=== PATIENT | male | born 1980 | race Caucasian/White ===

== ENCOUNTER 2021-03-20 09:35 | Emergency (ER) | payer BC ==
[~2021-03-20] VITALS: Ht 172.7 cm; Wt 90.9 kg
[2021-03-20 09:44] VITALS: BP 181/107
[2021-03-20] MEDS ORDERED: folic acid 1mg/0.2ml inj IV ONE (09:50)
[2021-03-20] MEDS ORDERED: thiamine 100mg/ml 2ml inj. IV ONE (09:50)
[2021-03-20] MEDS ORDERED: normal saline 1000ML IV soln IVB ONE (09:50)
[2021-03-20 10:14] LABS: BASOPHILS % (AUTO) 0.3 % (0-1); EOSINOPHILS % (AUTO) 0.2 % (0-6); HEMATOCRIT 42.5 % (42.0-52.0); HEMOGLOBIN 14.7 g/dl (14.0-17.9); LYMPHOCYTES # (AUTO) 1.6 X10'3 (1.1-4.8); LYMPHOCYTES % (AUTO) 32.7 % (21-51); MEAN CORPUSCULAR HGB CONC 34.6 g/dL (33.0-36.5); MEAN CORPUSCULAR VOLUME 95.4 FL (78-98); MEAN PLATELET VOLUME 7.5 FL (7.4-10.4); MONOCYTES # (AUTO) 0.5 X10'3 (0-0.9); MONOCYTES % (AUTO) 10.4 % (2-12); NEUTROPHILS # (AUTO) 2.7 X10'3 (1.8-7.7); NEUTROPHILS % (AUTO) 56.4 % (42-75); PLATELET COUNT 235 X10'3 (140-440); RED BLOOD COUNT 4.46 X10'6 (4.70-6.10); RED CELL DISTRIBUTION WIDTH 13.2 % (11.5-14.5); WHITE BLOOD COUNT 4.8 X10'3 (4.5-11.0)
[2021-03-20 10:38] LABS: ALANINE AMINOTRANSFERASE 52 U/L (12-78); ALBUMIN 4.5 G/DL (3.4-5.0); ALBUMIN/GLOBULIN RATIO 1.6 (1.1-1.5); ALKALINE PHOSPHATASE 46 IU/L (46-116); ANION GAP 11 (8-16); ASPARTATE AMINO TRANSFERASE 39 U/L (10-37); BILIRUBIN,TOTAL 1.5 MG/DL (0.1-1.0); BLOOD UREA NITROGEN 11 MG/DL (7-18); BUN/CREATININE RATIO 14.1 (5.4-32.0); CALCIUM 8.2 MG/DL (8.5-10.1); CHLORIDE 102 MMOL/L (99-107); CREATININE 0.78 MG/DL (0.60-1.10); ETHANOL < 0.010 GM/DL (0.0-0.010); GLUCOSE 100 MG/DL (70-104); POTASSIUM 3.9 MMOL/L (3.5-5.1); SODIUM 141 MMOL/L (135-145); TOTAL CARBON DIOXIDE 28.1 MMOL/L (24-32); TOTAL PROTEIN 7.4 G/DL (6.4-8.2); eGFR > 90 ML/MIN
[2021-03-20] MEDS ORDERED: ONDA4TAB6 PO (11:49)
[2021-03-20] MEDS ORDERED: LORA-269 PO (11:49)
[2021-03-20] MEDS ORDERED: GABA300C PO (11:49)
== END 2021-03-20 12:06 | disposition home or self-care (01) ==
LOC: ER 09:36
DX: F10.239 Alcohol dependence with withdrawal, unspecified (principal); Z79.899 Other long term (current) drug therapy; Y90.0 Blood alcohol level of less than 20 mg/100 ml
CPT/HCPCS: 36415; 80053; 80320; 85025; 99283; 99284

== ENCOUNTER 2023-01-31 23:34 | Emergency (ER) | payer BC ==
[~2023-01-31] VITALS: Ht 172.7 cm; Wt 92.6 kg
[~2023-01-31 23:34] MED LIST: GABA300C PO; LORA-269 PO; ONDA4TAB6 PO
[2023-01-31 23:52] VITALS: TEMP 98.2
[2023-02-01 02:17] VITALS: BP 163/110; PULSE 98; O2SAT 97
[2023-02-01] MEDS ORDERED: LORazepam 2 mg/ml vial IM ONE (02:20)
[2023-02-01] MEDS ORDERED: ketorolac trometh inj. 60 MG/2 ML VIAL IM ONE (02:20)
[2023-02-01] MEDS ORDERED: HYDROcodone/acetaminophen 10/325mg tab PO ONE (02:20)
[2023-02-01] MEDS ORDERED: silver nitrate applicator stick TP STA (03:38)
[2023-02-01 03:52] VITALS: RESP 16
[2023-02-01] MEDS ORDERED: METO5TAB98 PO (04:01)
[2023-02-01] MEDS ORDERED: HYDR30CR79 TOP (04:01)
[2023-02-01] MEDS ORDERED: IBUP-1984 PO (04:01)
== END 2023-02-01 04:39 | disposition home or self-care (01) ==
LOC: ER 23:36
DX: K62.89 Other specified diseases of anus and rectum (principal); Z79.899 Other long term (current) drug therapy
CPT/HCPCS: 96372; 99284; J1885; J2060; A6449